=== PATIENT | female | born 1985 | race Caucasian/White ===

== ENCOUNTER 2023-10-27 09:05 | Observation (INO) | payer BC ==
[~2023-10-27] VITALS: Ht 172.7 cm; Wt 96.6 kg
[2023-10-27 09:40] VITALS: BP 95/63; PULSE 84; RESP 17; TEMP 98.9
[2023-10-27] MEDS ORDERED: PNV1TABL5 PO (09:45)
[2023-10-27] MEDS ORDERED: PREN-543 PO (09:45)
== END 2023-10-27 13:35 | disposition home or self-care (01) ==
LOC: MLD 09:05
PROVIDERS: ADMIT Obstetrics & Gynecology; ATTEND Obstetrics & Gynecology
DX: O36.8130 Decreased fetal movements, third trimester, not applicable or unspecified (principal); Z3A.30 30 weeks gestation of pregnancy
CPT/HCPCS: 76805; 76819; G0378; G0379; Q0092

== ENCOUNTER 2023-12-28 08:04 | Inpatient (IN) | payer BC, MEDICAID ==
[~2023-12-28] VITALS: Ht 172.7 cm; Wt 101.2 kg
[~2023-12-28 08:04] MED LIST: PNV1TABL5 PO
[2023-12-28] MEDS ORDERED: CARBOPROST 250 MCG/ML AMP IM PRN (10:00)
[2023-12-28] MEDS ORDERED: ONDANSETRON 4 MG/2 ML VIAL IVP PRN (10:00)
[2023-12-28] MEDS ORDERED: METHYLERGONOVINE 0.2 MG/ML AMP IM PRN (10:00)
[2023-12-28] MEDS ORDERED: MORPHINE SULFATE 10 MG/ML VIAL IVP PRN (10:00)
[2023-12-28] MEDS ORDERED: ASPI-1205 PO (10:00)
[2023-12-28] MEDS ORDERED: AMPICILLIN 2,000 MG in NACL 0.9% MINI-BAG PLUS 100 ML IV SCH (10:00)
[2023-12-28 11:04] LABS: APPEARANCE,URINE CLEAR (CLEAR); BILIRUBIN,URINE NEGATIVE (NEGATIVE); BLOOD, URINE NEGATIVE (NEGATIVE); COLOR,URINE YELLOW (YELLOW); LEUKOCYTE ESTERASE ,URINE NEGATIVE (NEGATIVE); NITRITE, URINE NEGATIVE (NEGATIVE); PROTEIN,URINE NEGATIVE (NEGATIVE); UGLUCOSE NEGATIVE (NEGATIVE); UROBILINOGEN,URINE 0.2 EU/dL (0.2 - 1)
[2023-12-28 11:06] LABS: BASOPHILS % (AUTO) 0.4 % (0.0-2.0); EOSINOPHILS % (AUTO) 0.5 % (0.0-4.0); HEMATOCRIT 41.2 % (36-48); HEMOGLOBIN 14.2 g/dL (12.0-16.0); LYMPHOCYTES % (AUTO) 22.9 % (20.5-51.1); MEAN CORPUSCULAR HEMOGLOBIN 33 pg (27-31); MEAN CORPUSCULAR HGB CONC 35 g/dL (33-37); MEAN CORPUSCULAR VOLUME 94.3 fL (80-94); MONOCYTES # (AUTO) 0.5 K/uL (0.8-1.0); MONOCYTES % (AUTO) 5.8 % (1.7-9.3); NEUTROPHILS # (AUTO) 6.3 K/uL (1.8-7.7); NEUTROPHILS % (AUTO) 70.4 % (42.2-75.2); PLATELET COUNT (AUTO) 171 K/uL (140-450); RED BLOOD CELL COUNT(AUTO) 4.37 MIL/uL (4.20-5.40); RED CELL DISTRIBUTION WIDTH 14.7 % (11.6-13.7); WHITE BLOOD COUNT (AUTO) 8.9 K/uL (4.8-10.8)
[2023-12-28 11:42] LABS: INR 0.88 (0.8-1.2); PROTHROMBIN TIME 9.3 secs (10.8-13.4)
[2023-12-28 11:49] LABS: ALBUMIN 2.3 g/dL (3.4-5.0); ANION GAP 14.4 (8-16); CALCIUM 8.8 mg/dL (8.5-10.1); CREATININE 0.8 mg/dL (0.6-1.3); POTASSIUM 4.4 mmol/L (3.5-5.1); TOTAL BILIRUBIN 0.3 mg/dL (0.0-1.0); TOTAL PROTEIN, SERUM 6.9 g/dL (6.4-8.2)
[2023-12-28] MEDS: MISOPROSTOL 25 MCG TAB ONE (11:49)
[2023-12-28] MEDS: LACTATED RINGERS 1,000 ML IV SCH (11:49)
[2023-12-28] MEDS ORDERED: AMPICILLIN 1,000 MG in NACL 0.9% MINI-BAG PLUS 50 ML IV SCH ×2 (12:00→22:20)
[2023-12-28] MEDS: MISOPROSTOL 25 MCG TAB VG SCH (18:03)
[2023-12-29 09:07] LABS: RUBELLA AB IGG 1.25 index (Immune >0.99)
[2023-12-29 15:07] LABS: HEPATITIS B SURFACE ANTIGEN Negative (Negative)
[2023-12-29] MEDS: OXYTOCIN/0.9 % SODIUM CHLORIDE 500 ML IV SCH (15:53)
== END 2023-12-30 09:45 | disposition home or self-care (01) | DRG 566 ==
LOC: MLD 08:04
PROVIDERS: ADMIT Obstetrics & Gynecology; ATTEND Obstetrics & Gynecology
DX: O61.0 Failed medical induction of labor (principal); O99.820 Streptococcus B carrier state complicating pregnancy; Z20.822 Contact with and (suspected) exposure to COVID-19; Z3A.39 39 weeks gestation of pregnancy
CPT/HCPCS: 36415; 76815; 80053; 81003; 85025; 85610; 85730; 86592; 86762; 86886; 86900; 86901; 87340; J2590; J7120; Q0092

== ENCOUNTER 2024-01-05 14:16 | Inpatient (IN) | payer MEDICAID ==
[~2024-01-05] VITALS: Ht 170.2 cm; Wt 102.5 kg
[2024-01-05] MEDS ORDERED: CITRIC ACID/SODIUM CITRATE 30 ML UDC PO ONE (14:25)
[2024-01-05] MEDS ORDERED: LACTATED RINGERS 1,000 ML IV SCH (14:25)
[2024-01-05] MEDS: LACTATED RINGERS 1,000 ML IV SCH (15:30)
[2024-01-05 15:46] LABS: BASOPHILS % (AUTO) 0.3 % (0.0-2.0); EOSINOPHILS % (AUTO) 0.2 % (0.0-4.0); HEMATOCRIT 40.9 % (36-48); LYMPHOCYTES # (AUTO) 2.1 K/uL (2.5-16.5); LYMPHOCYTES % (AUTO) 20.4 % (20.5-51.1); MEAN CORPUSCULAR HEMOGLOBIN 32 pg (27-31); MEAN CORPUSCULAR HGB CONC 34 g/dL (33-37); MEAN CORPUSCULAR VOLUME 94.3 fL (80-94); MONOCYTES # (AUTO) 0.5 K/uL (0.8-1.0); MONOCYTES % (AUTO) 4.9 % (1.7-9.3); NEUTROPHILS # (AUTO) 7.7 K/uL (1.8-7.7); NEUTROPHILS % (AUTO) 74.2 % (42.2-75.2); PLATELET COUNT (AUTO) 182 K/uL (140-450); RED BLOOD CELL COUNT(AUTO) 4.34 MIL/uL (4.20-5.40); RED CELL DISTRIBUTION WIDTH 14.6 % (11.6-13.7); WHITE BLOOD COUNT (AUTO) 10.4 K/uL (4.8-10.8)
[2024-01-05] MEDS ORDERED: LACTATED RINGERS 1,000 ML IV ONE ×2 (15:50→17:00)
[2024-01-05 16:03] LABS: APPEARANCE,URINE CLEAR (CLEAR); BILIRUBIN,URINE NEGATIVE (NEGATIVE); BLOOD, URINE NEGATIVE (NEGATIVE); COLOR,URINE YELLOW (YELLOW); LEUKOCYTE ESTERASE ,URINE NEGATIVE (NEGATIVE); NITRITE, URINE NEGATIVE (NEGATIVE); PROTEIN,URINE NEGATIVE (NEGATIVE); UGLUCOSE NEGATIVE (NEGATIVE); UROBILINOGEN,URINE 0.2 EU/dL (0.2 - 1)
[2024-01-05 16:07] LABS: INR 0.87 (0.8-1.2); PARTIAL THROMBOPLASTIN TIME 26.3 secs (22-35.6); PROTHROMBIN TIME 9.2 secs (10.8-13.4)
[2024-01-05] MEDS ORDERED: MORPHINE PRES FREE 10 MG/10 ML AMP IV ONE (16:13)
[2024-01-05 16:17] LABS: ALBUMIN 2.6 g/dL (3.4-5.0); ANION GAP 15.2 (8-16); CALCIUM 8.8 mg/dL (8.5-10.1); CARBON DIOXIDE 20.8 mmol/L (21-32); CREATININE 0.8 mg/dL (0.6-1.3); TOTAL BILIRUBIN 0.3 mg/dL (0.0-1.0); TOTAL PROTEIN, SERUM 6.4 g/dL (6.4-8.2)
[2024-01-05] MEDS ORDERED: diphenhydrAMINE 50 MG/ML VIAL ONE (16:20)
[2024-01-05] MEDS ORDERED: ceFAZolin 2,000 MG VIAL ONE (16:22)
[2024-01-05] MEDS ORDERED: METOCLOPRAMIDE 10 MG/2 ML INJ VIAL ONE (16:30)
[2024-01-05] MEDS ORDERED: KETOROLAC 30 MG/ML VIAL ONE (16:30)
[2024-01-05] MEDS ORDERED: ONDANSETRON 4 MG/2 ML VIAL ONE (16:30)
[2024-01-05] MEDS ORDERED: PHENYLEPHRINE 10 MG/ML VIAL ONE (16:30)
[2024-01-05] MEDS ORDERED: NALOXONE 0.4 MG/ML VIAL IVP PRN ×3 (18:10)
[2024-01-05] MEDS: diphenhydrAMINE 50 MG/ML VIAL IVP PRN (18:10)
[2024-01-05] MEDS ORDERED: ONDANSETRON 4 MG/2 ML VIAL IVP PRN (18:10)
[2024-01-05] MEDS ORDERED: NALBUPHINE 10 MG/ML AMP IVP PRN (18:10)
[2024-01-05] MEDS: OXYTOCIN/0.9 % SODIUM CHLORIDE 500 ML IV ONE (18:19)
[2024-01-06 05:34] LABS: BASOPHILS % (AUTO) 0.3 % (0.0-2.0); EOSINOPHILS % (AUTO) 0.2 % (0.0-4.0); HEMATOCRIT 36.9 % (36-48); HEMOGLOBIN 12.5 g/dL (12.0-16.0); LYMPHOCYTES # (AUTO) 1.7 K/uL (2.5-16.5); LYMPHOCYTES % (AUTO) 14.4 % (20.5-51.1); MEAN CORPUSCULAR HEMOGLOBIN 32 pg (27-31); MEAN CORPUSCULAR HGB CONC 34 g/dL (33-37); MEAN CORPUSCULAR VOLUME 94.2 fL (80-94); MONOCYTES # (AUTO) 0.8 K/uL (0.8-1.0); NEUTROPHILS # (AUTO) 9.3 K/uL (1.8-7.7); NEUTROPHILS % (AUTO) 78.1 % (42.2-75.2); PLATELET COUNT (AUTO) 171 K/uL (140-450); RED BLOOD CELL COUNT(AUTO) 3.91 MIL/uL (4.20-5.40); RED CELL DISTRIBUTION WIDTH 14.5 % (11.6-13.7); WHITE BLOOD COUNT (AUTO) 11.9 K/uL (4.8-10.8)
[2024-01-06] MEDS: OXYTOCIN/0.9 % SODIUM CHLORIDE 500 ML IV ONE (07:04)
[2024-01-06] MEDS ORDERED: KETOROLAC 30 MG/ML VIAL IVP PRN (11:35)
[2024-01-06] MEDS: KETOROLAC 30 MG/ML VIAL IM/IVP SCH (11:35)
[2024-01-06] MEDS ORDERED: MEASLES, MUMPS, AND RUBELLA 1 VIAL SQVAC ONE (11:35)
[2024-01-06] MEDS ORDERED: METHYLERGONOVINE 0.2 MG/ML AMP IM PRN (11:35)
[2024-01-06] MEDS ORDERED: MEASLES, MUMPS, AND RUBELLA 1 VIAL SQVAC PRN (12:10)
[2024-01-06] MEDS: SIMETHICONE 80 MG TAB.CHEW PO PRN (14:11)
[2024-01-06] MEDS: oxyCODONE/APAP 5/325 MG 1 TAB TAB PO PRN (20:57)
[2024-01-07] MEDS ORDERED: CAMERA MC ONE (02:30)
[2024-01-07] MEDS: IBUPROFEN 800 MG TAB PO PRN (04:04)
[2024-01-07] MEDS: bisacodyL 5 MG TABEC PO PRN (19:16)
== END 2024-01-07 22:12 | disposition home or self-care (01) | DRG 540 ==
LOC: MLD 14:16 → MFCC 18:09
PROVIDERS: ADMIT Obstetrics & Gynecology; ATTEND Obstetrics & Gynecology
PROC: 10D00Z1 Extraction of Products of Conception, Low, Open Approach (ICD-10-PCS; principal; 2024-01-06)
DX: O69.81X0 Labor and delivery complicated by cord around neck, without compression, not applicable or unspecified (principal); O61.9 Failed induction of labor, unspecified; O36.63X0 Maternal care for excessive fetal growth, third trimester, not applicable or unspecified; Z20.822 Contact with and (suspected) exposure to COVID-19; Z3A.39 39 weeks gestation of pregnancy; Z37.0 Single live birth
CPT/HCPCS: 36415; 51702; 80053; 81003; 85025; 85610; 85730; 86592; 86886; 86900; 86901; 87081; J0690; J1200; J1885; J2270; J2370; J2405; J2590; J2765; J7060